=== PATIENT | male | born 1975 | race Caucasian/White ===

== ENCOUNTER 2017-09-21 01:38 | Emergency (ER) | payer MEDICAID, OTHER ==
[~2017-09-21] VITALS: Ht 177.8 cm; Wt 100.0 kg
[~2017-09-21 01:38] MED LIST: CHLO.12%30 SSP; IBUP800T23 PO; PENI500T PO
[2017-09-21 01:51] VITALS: BP 150/101; PULSE 111; RESP 19; TEMP 98.7; O2SAT 98
[2017-09-21] MEDS ORDERED: ZIPRASIDONE MESYLATE 20 MG VIAL IM ONE (02:15)
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
[2017-09-21 02:41] LABS: AUTOMATED NEUTROPHIL # 6.2 TH/MM3 (1.8-7.7); BASOPHIL # 0.1 TH/MM3 (0-0.2); BASOPHIL % 0.9 % (0.0-2.0); EOSINOPHIL % 0.5 % (0.0-4.0); HEMATOCRIT 43.4 % (39.0-51.0); HEMOGLOBIN 14.9 GM/DL (13.0-17.0); LYMPH % 16.4 % (9.0-44.0); LYMPHOCYTE # 1.5 TH/MM3 (1.0-4.8); MEAN CELL VOLUME 84.8 FL (80.0-100.0); MEAN CORPUSCULAR HEMOGLOBIN 29.1 PG (27.0-34.0); MEAN CORPUSCULAR HGB CONC 34.4 % (32.0-36.0); MEAN PLATELET VOLUME 7.7 FL (7.0-11.0); MONOCYTE # 1.3 TH/MM3 (0-0.9); NEUT % 68.2 % (16.0-70.0); PLATELET COUNT 351 TH/MM3 (150-450); RED BLOOD COUNT 5.12 MIL/MM3 (4.50-5.90); RED CELL DISTRIBUTION WIDTH 14.5 % (11.6-17.2)
[2017-09-21 03:02] LABS: ALT (GPT) 45 U/L (12-78); AST (GOT) 57 U/L (15-37); BICARBONATE 25.7 MEQ/L (21.0-32.0); BLOOD UREA NITROGEN 17 MG/DL (7-18); CALCIUM 8.6 MG/DL (8.5-10.1); CHLORIDE 108 MEQ/L (98-107); GLOMERULAR FILTRATION RATE 67 ML/MIN (>89); GLUCOSE,RANDOM 82 MG/DL (74-106); SODIUM (NA) 142 MEQ/L (136-145)
[2017-09-21 03:12] LABS: ALKALINE PHOSPHATASE 49 U/L (45-117); TOTAL PROTEIN 7.8 GM/DL (6.4-8.2)
[2017-09-21 03:13] LABS: ACETAMINOPHEN LESS THAN 2.0 MCG/ML (10.0-30.0)
[2017-09-21 07:06] VITALS: BP 132/74; PULSE 106; RESP 20; TEMP 98.6; O2SAT 98
--- NOTE | 2017-09-21 08:16 | PD ---
Data Data Last Documented VS Vital Signs Date Time Temp Pulse Resp B/P (MAP) Pulse Ox O2 Delivery O2 Flow Rate FiO2 09/21/17 07:06 98.6 106 20 132/74 (93) 98 Room Air Orders Orders Complete Blood Count With Diff (09/21/17 01:46) Comprehensive Metabolic Panel (09/21/17 01:46) Thyroid Stimulating Hormone (09/21/17 01:46) Psych Screen (09/21/17 01:46) Drug Screen, Random Urine (09/21/17 01:46) Alcohol (Ethanol) (09/21/17 01:46) Salicylates (Aspirin) (09/21/17 01:46) Tylenol (Acetaminophen) (09/21/17 01:46) Ziprasidone Inj (Geodon Inj) (09/21/17 02:15) Diet Regular Basic (09/21/17 Breakfast) Labs Laboratory Tests Test 09/21/17 01:53 White Blood Count 9.0 TH/MM3 Red Blood Count 5.12 MIL/MM3 Hemoglobin 14.9 GM/DL Hematocrit 43.4 % Mean Corpuscular Volume 84.8 FL Mean Corpuscular Hemoglobin 29.1 PG Mean Corpuscular Hemoglobin Concent 34.4 % Red Cell Distribution Width 14.5 % Platelet Count 351 TH/MM3 Mean Platelet Volume 7.7 FL Neutrophils (%) (Auto) 68.2 % Lymphocytes (%) (Auto) 16.4 % Monocytes (%) (Auto) 14.0 % Eosinophils (%) (Auto) 0.5 % Basophils (%) (Auto) 0.9 % Neutrophils # (Auto) 6.2 TH/MM3 Lymphocytes # (Auto) 1.5 TH/MM3 Monocytes # (Auto) 1.3 TH/MM3 Eosinophils # (Auto) 0.0 TH/MM3 Basophils # (Auto) 0.1 TH/MM3 CBC Comment DIFF FINAL Differential Comment Blood Urea Nitrogen 17 MG/DL Creatinine 1.20 MG/DL Random Glucose 82 MG/DL Total Protein 7.8 GM/DL Albumin 4.0 GM/DL Calcium Level 8.6 MG/DL Alkaline Phosphatase 49 U/L Aspartate Amino Transf (AST/SGOT) 57 U/L Alanine Aminotransferase (ALT/SGPT) 45 U/L Total Bilirubin 1.0 MG/DL Sodium Level 142 MEQ/L Potassium Level 3.8 MEQ/L Chloride Level 108 MEQ/L Carbon Dioxide Level 25.7 MEQ/L Anion Gap 8 MEQ/L Estimat Glomerular Filtration Rate 67 ML/MIN Thyroid Stimulating Hormone 3rd Gen 0.752 uIU/ML Salicylates Level LESS THAN 1.7 MG/DL Acetaminophen Level LESS THAN 2.0 MCG/ML Ethyl Alcohol Level LESS THAN 3 MG/DL MDM Medical Record Reviewed: Yes Supervised Visit with RADHA: No Narrative Course See previous providers notes for complete history of present illness. This patient has been seen by psychiatrist Dr. Hensley and cleared by the psychiatry department. There is no medical issue that would warrant additional hospitalization. He is stable for discharge. Diagnosis Primary Impression: Medical clearance for psychiatric admission Additional Impressions: substance induced psychosis Amphetamine use disorder, moderate Med/Other Pt SpecificInfo: No Change to Meds Disposition: 01 DISCHARGE HOME Condition: Stable Carlos Finch Sep 21, 2017 08:16
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
== END 2017-09-21 08:40 | disposition home or self-care (01) ==
LOC: NEPJ 01:38
DX: F19.959 Other psychoactive substance use, unspecified with psychoactive substance-induced psychotic disorder, unspecified (principal)
CPT/HCPCS: 80053; 80307; 84443; 85025; 96372; 99284; J3486